=== PATIENT | female | born 1995 | race Caucasian/White ===

== ENCOUNTER 2019-05-15 00:45 | Emergency (ER) | payer MEDICAID ==
[~2019-05-15] VITALS: Ht 154.9 cm; Wt 56.7 kg
[2019-05-15 00:50] VITALS: BP_SYST 130
--- NOTE | 2019-05-15 00:50 | NUR ---
Patient to ER bed 8 to gown for evaluation. Side rails up.
[2019-05-15] MEDS ORDERED: KETOROLAC TROMETHAMINE 60 MG/2 ML VIAL IM ONE (01:00)
--- NOTE | 2019-05-15 01:11 | NUR ---
ER at bedside examining patient.
--- NOTE | 2019-05-15 01:11 | NUR ---
Urine HCG done, results NEGATIVE.
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
[2019-05-15 02:11] VITALS: BP_SYST 130
--- NOTE | 2019-05-15 02:12 | NUR ---
Patient given written and verbal discharge instructions and verbalizes understanding. ER MD discussed with patient the results and treatment provided. Patient in stable condition. ID arm band removed. Rx of [place] given. Patient educated on pain management and to follow up with PMD. Pain Scale 0. Opportunity for questions provided and answered. Medication side effect fact sheet provided.
== END 2019-05-15 02:12 | disposition home or self-care (01) ==
LOC: SED 00:45
DX: S13.4XXA Sprain of ligaments of cervical spine, initial encounter (principal); S20.211A Contusion of right front wall of thorax, initial encounter; R03.0 Elevated blood-pressure reading, without diagnosis of hypertension; V43.52XA Car driver injured in collision with other type car in traffic accident, initial encounter; Y93.89 Activity, other specified; Y92.410 Unspecified street and highway as the place of occurrence of the external cause; Y99.8 Other external cause status
CPT/HCPCS: 81025; 99283; J1885